=== PATIENT | male | born 1985 | race Caucasian/White ===

== ENCOUNTER 2020-11-11 20:57 | Emergency (ER) | payer OTHER ==
[2020-11-11] MEDS ORDERED: NEO-POLYCIN HC3.5 GM EYELF (22:52)
== END 2020-11-11 23:30 | disposition home or self-care (01) ==
LOC: ER1 20:57
DX: T15.92XA Foreign body on external eye, part unspecified, left eye, initial encounter (principal); W45.8XXA Other foreign body or object entering through skin, initial encounter; Z23 Encounter for immunization
CPT/HCPCS: 65220; 90471; 90715; 99283

== ENCOUNTER → 2022-05-14 | Day surgery (SDC) | payer BC ==
[~2022-05-14] MED LIST: NEO-POLYCIN HC3.5 GM EYELF; PROTONIX20 MG PO
== END | disposition home or self-care (01) ==
LOC: OR 08:59
DX: K29.80 Duodenitis without bleeding (principal)